=== PATIENT | male | born 1960 | race Hispanic/Latino ===

== ENCOUNTER 2022-01-07 16:32 | Inpatient (IN) | payer OTHER ==
[~2022-01-07] VITALS: Ht 172.7 cm; Wt 92.5 kg
[2022-01-07 16:57] LABS: APPEARANCE,URINE CLEAR (CLEAR); BILIRUBIN,URINE NEGATIVE (NEGATIVE); COLOR,URINE YELLOW (YELLOW); GLUCOSE, URINE (UA) NEGATIVE (NEGATIVE); KETONES,URINE NEGATIVE (NEGATIVE); LEUKOCYTE ESTERASE ,URINE NEGATIVE (NEGATIVE); NITRATE,URINE NEGATIVE (NEGATIVE); OCCULT BLOOD,URINE TRACE-LYSED (NEGATIVE); PH,URINE 6.5 (5.0-8.0); PROTEIN,URINE NEGATIVE (NEGATIVE); UROBILINOGEN,URINE 0.2 mg/dL (0.2-1.0)
[2022-01-07] MEDS ORDERED: ASPIRIN 325MG TAB PO ONE (17:00)
[2022-01-07] MEDS ORDERED: NITROGLYCERIN 1GM OINT 1 INCH/1GM TD ONE (17:00)
[2022-01-07 17:04] LABS: BASOPHILS % (AUTO) 0.3 % (0.0-5.0); HEMATOCRIT 38.9 % (42-54); LYMPHOCYTES % (AUTO) 9.1 % (21.0-51.0); MEAN CORPUSCULAR HGB CONC 34.7 g/dL (32.0-36.0); MEAN CORPUSCULAR VOLUME 83.5 fL (79-99); NEUTROPHILS % (AUTO) 87.2 % (40.0-77.0); PLATELET COUNT (AUTO) 221 K/uL (130-400); RED BLOOD CELL COUNT(AUTO) 4.66 MIL/uL (4.50-6.20); RED CELL DISTRIBUTION WIDTH 13.3 % (11.0-15.5); WHITE BLOOD COUNT (AUTO) 11.9 K/uL (4.8-10.8)
[2022-01-07 17:30] LABS: BACTERIA,URINE Rare /HPF (None Seen); RBC,URINE 0-1 /HPF (0-1); SQUAMOUS EPITHELIAL CELL,UR Few /HPF (0-2); WBC,URINE 0-1 /HPF (0-1)
[2022-01-07 17:31] LABS: MUCUS,URINE Few LPF (None Seen)
[2022-01-07 17:34] LABS: ALBUMIN 3.8 g/dL (3.5-5.0); POTASSIUM 3.5 mmol/L (3.5-5.1); TOTAL PROTEIN, SERUM 7.7 g/dL (6.0-8.3)
[2022-01-07 17:47] LABS: B-TYPE NATRIURETIC PEPTIDE 159 pg/mL (0-100)
[2022-01-07] MEDS ORDERED: ONDANSETRON 4MG INJ IV PRN (18:30)
[2022-01-07] MEDS ORDERED: NITROGLYCERIN 0.4 MG SL TAB SL PRN (18:30)
[2022-01-07 18:56] LABS: HEMOGLOBIN A1C 5.2 % (4.0-6.0)
[2022-01-07 18:58] LABS: CHOLESTEROL 213 mg/dL (<200); HDL CHOLESTEROL 36 mg/dL (29-71); LDL DIRECT 128 mg/dL (0-99); TRIGLYCERIDES 208 mg/dL (30-200)
[2022-01-07] MEDS ORDERED: NITROGLYCERIN 1GM OINT 1 INCH/1GM TD PRN (19:30)
[2022-01-07] MEDS ORDERED: TICAGRELOR 90 MG TABLET PO SCH (19:30)
[2022-01-07] MEDS: ENOXAPARIN SODIUM 100 MG/1 ML SQ SCH (19:41)
[2022-01-07 19:52] LABS: INR 0.96 (0.85-1.15); PROTHROMBIN TIME 10.5 SEC (9.6-11.6)
[2022-01-07 19:53] LABS: PARTIAL THROMBOPLASTIN TIME 25.3 SEC (26.3-35.5)
[2022-01-07] MEDS: METOPROLOL TARTRATE 25 MG TAB PO SCH (21:47)
[2022-01-08] VITALS (15 sets, daily range): BP systolic 111–148; BP diastolic 60–80
[2022-01-08] MEDS ORDERED: 0.9% NACL 500ML IV.SOLN 500 ML IV SCH
[2022-01-08] MEDS ORDERED: TICAGRELOR 90 MG TABLET PO SCH (09:00)
[2022-01-08] MEDS: ENOXAPARIN SODIUM 100 MG/1 ML SQ SCH (09:00)
[2022-01-08] MEDS ORDERED: ATORVASTATIN 20 MG TABLET PO SCH (09:00)
[2022-01-08] MEDS ORDERED: PANTOPRAZOLE 40 MG TAB DR PO SCH (09:00)
[2022-01-08] MEDS: METOPROLOL TARTRATE 25 MG TAB PO SCH ×2 (09:23→21:16)
[2022-01-08] MEDS: ASPIRIN 81 MG EC TAB PO SCH (09:23)
[2022-01-08 09:31] LABS: MEAN CORPUSCULAR HGB CONC 33.9 g/dL (32.0-36.0); MEAN CORPUSCULAR VOLUME 85.7 fL (79-99); RED BLOOD CELL COUNT(AUTO) 4.2 MIL/uL (4.50-6.20); RED CELL DISTRIBUTION WIDTH 13.8 % (11.0-15.5); WHITE BLOOD COUNT (AUTO) 14.2 K/uL (4.8-10.8)
[2022-01-08] MEDS ORDERED: LIDOCAINE HCL-MPF 2% 10ML AMP IJ ONE (09:40)
[2022-01-08] MEDS ORDERED: FENTANYL CITRATE PF 50 MCG/1 ML 2ML VIAL ONE (09:40)
[2022-01-08] MEDS ORDERED: IOHEXOL-350 50ML VIAL IV ONE (09:40)
[2022-01-08] MEDS ORDERED: MIDAZOLAM HCL 1 MG/ML 2ML VIAL ONE (09:40)
[2022-01-08] MEDS ORDERED: NITROGLYCERIN 50MG VIAL ONE (09:40)
[2022-01-08] MEDS ORDERED: IOHEXOL 350 MG/ML 100ML INFUS..BTL IV ONE (09:40)
[2022-01-08 09:48] LABS: ALBUMIN 3.5 g/dL (3.5-5.0); POTASSIUM 3.5 mmol/L (3.5-5.1); TOTAL PROTEIN, SERUM 6.9 g/dL (6.0-8.3)
[2022-01-08] MEDS ORDERED: HEPARIN 25,000 UNITS/250ML D5W 250 ML IV SCH (11:00)
[2022-01-08] MEDS ORDERED: HEPARIN 5,000 UNIT VIAL ONE (13:54)
[2022-01-08] MEDS: ACETAMINOPHEN 325 MG TAB PO PRN (16:45)
[2022-01-08 20:29] LABS: PROTHROMBIN TIME 10.9 SEC (9.6-11.6)
[2022-01-08 20:31] LABS: PARTIAL THROMBOPLASTIN TIME 79.1 SEC (26.3-35.5)
[2022-01-09] VITALS (28 sets, daily range): BP systolic 97–159; BP diastolic 40–67
[2022-01-09] MEDS: ACETAMINOPHEN 325 MG TAB PO PRN ×3 (03:09→23:30)
[2022-01-09 04:05] LABS: BASOPHILS % (AUTO) 0.3 % (0.0-5.0); EOSINOPHILS % (AUTO) 0.1 % (0.0-8.0); HEMATOCRIT 34.6 % (42-54); MEAN CORPUSCULAR HGB CONC 34.4 g/dL (32.0-36.0); MEAN CORPUSCULAR VOLUME 84.4 fL (79-99); MONOCYTES % (AUTO) 11.8 % (3.0-13.0); NEUTROPHILS % (AUTO) 73.2 % (40.0-77.0); PLATELET COUNT (AUTO) 180 K/uL (130-400); RED CELL DISTRIBUTION WIDTH 13.7 % (11.0-15.5); WHITE BLOOD COUNT (AUTO) 13.8 K/uL (4.8-10.8)
[2022-01-09 04:09] LABS: CREATININE 1.2 mg/dL (0.5-1.5); POTASSIUM 3.4 mmol/L (3.5-5.1)
[2022-01-09 04:12] LABS: INR 1.01 (0.85-1.15)
[2022-01-09] MEDS ORDERED: KCL 20 MEQ ERTAB PO ONE (04:30)
[2022-01-09 04:34] LABS: HEMOGLOBIN A1C 5.2 % (4.0-6.0)
[2022-01-09 04:39] LABS: B-TYPE NATRIURETIC PEPTIDE 357 pg/mL (0-100)
[2022-01-09] MEDS: METOPROLOL TARTRATE 25 MG TAB PO SCH (08:18)
[2022-01-09] MEDS ORDERED: EPINEPHRINE PF 1MG (1:1,000) 10 MG in 0.9% NACL 250ML 240 ML IV PRN ×2 (09:00→17:00)
[2022-01-09] MEDS ORDERED: AMINOCAPROIC ACID 5,000MG VIAL 15,000 MG in 0.9% NACL 500ML IV.SOLN 420 ML IV PRN (09:00)
[2022-01-09] MEDS ORDERED: NOREPINEPHRINE BITARTRATE 8 MG in DEXTROSE 5%-WATER 250 ML IV PRN (09:00)
[2022-01-09] MEDS: ASPIRIN 81 MG EC TAB PO SCH (09:00)
[2022-01-09] MEDS ORDERED: NITROGLYCERIN 50MG/D5W 250ML 1 BOT ONE (13:34)
[2022-01-09] MEDS ORDERED: CEFAZOLIN SODIUM 1 GM VIAL IVP SCH (14:00)
[2022-01-09] MEDS ORDERED: 0.9%NACL 1000ML 1,000 ML IV ONE (14:19)
[2022-01-09] MEDS ORDERED: NOREPINEPHRINE BITARTRATE 1 MG/1 ML ML IV ONE (15:21)
[2022-01-09] MEDS ORDERED: LIDOCAINE PF 100MG/5ML (2%) SYRINGE 5ML ONE (15:21)
[2022-01-09] MEDS ORDERED: PROTAMINE SULFATE 10 MG/ML 25ML VIAL IV ONE (15:21)
[2022-01-09] MEDS ORDERED: SODIUM BICARB 50MEQ 50ML VIAL 150 ML ONE (15:21)
[2022-01-09] MEDS ORDERED: HEPARIN 10,000 UNIT/10ML (1,000 UNIT/ML) VIAL ONE ×2 (15:21→16:03)
[2022-01-09] MEDS ORDERED: EPINEPHRINE PF 1MG (1:1,000) 1 MG/ML AMP ONE (15:21)
[2022-01-09] MEDS ORDERED: AMINOCAPROIC ACID 5,000MG VIAL ONE (15:21)
[2022-01-09] MEDS ORDERED: ESMOLOL HCL 10 MG/ML 10 ML VIAL ONE (15:21)
[2022-01-09] MEDS ORDERED: PROPOFOL 10 MG/ML 20ML VIAL IV ONE (15:22)
[2022-01-09] MEDS ORDERED: KETAMINE 50MG/ML SYRINGE 50 MG/ML DISP.SYRIN IV ONE (15:22)
[2022-01-09] MEDS ORDERED: ROCURONIUM 10MG/1ML SYR 10 MG/ML ML ONE ×2 (15:22→18:06)
[2022-01-09] MEDS ORDERED: MIDAZOLAM HCL 1 MG/ML 2ML VIAL ONE (15:22)
[2022-01-09] MEDS ORDERED: FENTANYL CITRATE PF 50 MCG/1 ML 20ML VIAL IJ ONE (15:22)
[2022-01-09] MEDS ORDERED: CEFAZOLIN SODIUM 1 GM VIAL ONE (15:51)
[2022-01-09] MEDS ORDERED: PAPAVERINE HCL 30 MG/ML 2ML VIAL ONE (15:52)
[2022-01-09 16:14] LABS: ABG BASE EXCESS -2.3 mmol/L (-2.0-3.0); ABG HCO3 22.1 mmol/L (21.0-28.0); ABG OXYGEN SATURATION 99.4 % (95.0-99.0); ABG PCO2 37 mmHg (35-48)
[2022-01-09] MEDS ORDERED: ACETAMINOPHEN 325 MG TAB PO PRN (17:00)
[2022-01-09] MEDS ORDERED: ACETAMINOPHEN 650 MG SUPPOSITORY RC PRN (17:00)
[2022-01-09] MEDS ORDERED: GLUCAGON 1MG KIT 1 MG ML IM PRN (17:00)
[2022-01-09] MEDS ORDERED: HYDROCODONE/ACETAMINOPHEN 7.5/325 MG TAB PO PRN (17:00)
[2022-01-09] MEDS ORDERED: NOREPINEPHRIN 4MG/NS 250ML 250 ML IV PRN (17:00)
[2022-01-09] MEDS ORDERED: NITROGLYCERIN 50MG/D5W 250ML 250 BOT IV SCH (17:00)
[2022-01-09] MEDS ORDERED: AMINOCAPROIC ACID 5,000MG VIAL 15,000 MG in 0.9% NACL 250ML 250 ML IV SCH (17:00)
[2022-01-09] MEDS ORDERED: 0.9% NACL 500ML IV.SOLN 500 ML IV SCH (17:00)
[2022-01-09] MEDS ORDERED: 0.9%NACL 10ML VIAL IVP PRN (17:00)
[2022-01-09] MEDS ORDERED: 0.9%NACL 1000ML 1,000 ML IV SCH (17:00)
[2022-01-09] MEDS ORDERED: ALBUMIN (HUMAN) 5% 250 ML IV PRN (17:00)
[2022-01-09] MEDS ORDERED: INSULIN REGULAR, HUMAN 3ML 100 UNIT in 0.9%NACL 100ML 99 ML IV SCH ×2 (17:00)
[2022-01-09] MEDS ORDERED: POTASSIUM PHOS 15 mMOL+NS250ML 250 ML IV PRN (17:00)
[2022-01-09] MEDS ORDERED: MORPHINE 2 MG SYG IV PRN ×2 (17:00)
[2022-01-09] MEDS ORDERED: PROPOFOL 1000 MG/100 ML 100 ML IV PRN (17:00)
[2022-01-09] MEDS ORDERED: DEXTROSE 50%-WATER 50 ML DISP.SYRIN IV PRN (17:00)
[2022-01-09] MEDS ORDERED: ONDANSETRON 4MG INJ IV PRN (17:00)
[2022-01-09] MEDS ORDERED: SODIUM BICARB 50MEQ 50ML VIAL 100 ML ONE (17:17)
[2022-01-09 17:52] LABS: ABG HCO3 22.5 mmol/L (21.0-28.0); ABG OXYGEN SATURATION 98.1 % (95.0-99.0); ABG PCO2 37 mmHg (35-48)
[2022-01-09 18:37] LABS: ABG BASE EXCESS -2.6 mmol/L (-2.0-3.0); ABG HCO3 22.8 mmol/L (21.0-28.0); ABG OXYGEN SATURATION 95.9 % (95.0-99.0); ABG PCO2 42 mmHg (35-48)
[2022-01-09 18:46] LABS: HEMATOCRIT 27.9 % (42-54); MEAN CORPUSCULAR HEMOGLOBIN 28.7 pg (27.0-33.0); MEAN CORPUSCULAR HGB CONC 33.7 g/dL (32.0-36.0); MEAN CORPUSCULAR VOLUME 85.3 fL (79-99); RED BLOOD CELL COUNT(AUTO) 3.27 MIL/uL (4.50-6.20); RED CELL DISTRIBUTION WIDTH 13.6 % (11.0-15.5); WHITE BLOOD COUNT (AUTO) 27.3 K/uL (4.8-10.8)
[2022-01-09 18:57] LABS: INR 1.19 (0.85-1.15); PROTHROMBIN TIME 12.8 SEC (9.6-11.6)
[2022-01-09 18:58] LABS: PARTIAL THROMBOPLASTIN TIME 23.1 SEC (26.3-35.5)
[2022-01-09] MEDS: SODIUM BICARB 50MEQ 50ML VIAL IV PRN (18:59)
[2022-01-09 19:00] LABS: CREATININE 1.2 mg/dL (0.5-1.5); MAGNESIUM 1.5 mg/dL (1.80-2.40); PHOSPHORUS 3.4 mg/dL (2.5-4.9); POTASSIUM 3.3 mmol/L (3.5-5.1)
[2022-01-09] MEDS ORDERED: ASPIRIN 81MG CHEW TAB NG ONE (19:00)
[2022-01-09] MEDS: POTASSIUM CHLORIDE 20MEQ/100ML 100 ML IV PRN ×3 (19:07→21:37)
[2022-01-09 19:29] LABS: ABG BASE EXCESS 1.4 mmol/L (-2.0-3.0); ABG HCO3 25.5 mmol/L (21.0-28.0); ABG OXYGEN SATURATION 98.4 % (95.0-99.0); ABG PCO2 38 mmHg (35-48)
[2022-01-09] MEDS: FAMOTIDINE 20MG VIAL IV SCH (19:41)
[2022-01-09] MEDS: ATORVASTATIN 40 MG TABLET PO SCH (19:41)
[2022-01-09] MEDS: CALCIUM GLUC 1GM 1 GM in 0.9%NACL 50ML 50 ML IV PRN ×2 (19:47→21:36)
[2022-01-09 20:29] LABS: ABG BASE EXCESS 0.9 mmol/L (-2.0-3.0); ABG HCO3 25.2 mmol/L (21.0-28.0); ABG OXYGEN SATURATION 98.3 % (95.0-99.0); ABG PCO2 39 mmHg (35-48)
[2022-01-09] MEDS: MAGNESIUM 2GM PREMIX 50ML 50 ML IV PRN ×2 (20:42→22:40)
[2022-01-09 21:28] LABS: ABG BASE EXCESS 0.8 mmol/L (-2.0-3.0); ABG HCO3 25.8 mmol/L (21.0-28.0); ABG OXYGEN SATURATION 97.8 % (95.0-99.0); ABG PCO2 43 mmHg (35-48)
[2022-01-09] MEDS: CEFAZOLIN SODIUM 1 GM VIAL IV SCH (21:53)
[2022-01-09 22:32] LABS: ABG BASE EXCESS -0.5 mmol/L (-2.0-3.0); ABG HCO3 23.9 mmol/L (21.0-28.0); ABG PCO2 38 mmHg (35-48)
[2022-01-09 23:26] LABS: ABG HCO3 24.6 mmol/L (21.0-28.0); ABG PCO2 40 mmHg (35-48)
[2022-01-09] MEDS ORDERED: ALBUMIN (HUMAN) 5% 250 ML IV ONE (23:52)
[2022-01-10] VITALS (58 sets, daily range): BP systolic 81–260; BP diastolic 42–260
[2022-01-10] MEDS: CALCIUM GLUC 1GM 1 GM in 0.9%NACL 50ML 50 ML IV PRN ×2 (00:28→05:25)
[2022-01-10 00:29] LABS: ABG BASE EXCESS 1.1 mmol/L (-2.0-3.0); ABG HCO3 25.3 mmol/L (21.0-28.0); ABG OXYGEN SATURATION 98.1 % (95.0-99.0); ABG PCO2 38 mmHg (35-48)
[2022-01-10 01:39] LABS: ABG BASE EXCESS -1.1 mmol/L (-2.0-3.0); ABG HCO3 23.3 mmol/L (21.0-28.0); ABG OXYGEN SATURATION 97.4 % (95.0-99.0); ABG PCO2 37 mmHg (35-48)
[2022-01-10] MEDS: SODIUM BICARB 50MEQ 50ML VIAL IV PRN (01:40)
[2022-01-10] MEDS: HYDROCODONE/ACETAMINOPHEN 5/325 MG TAB PO PRN ×3 (01:57→15:43)
[2022-01-10 03:59] LABS: ABG BASE EXCESS 0.2 mmol/L (-2.0-3.0); ABG HCO3 24.7 mmol/L (21.0-28.0); ABG OXYGEN SATURATION 95.1 % (95.0-99.0); ABG PCO2 39 mmHg (35-48)
[2022-01-10 04:38] LABS: HEMATOCRIT 25.1 % (42-54); MEAN CORPUSCULAR HEMOGLOBIN 29.2 pg (27.0-33.0); MEAN CORPUSCULAR HGB CONC 33.9 g/dL (32.0-36.0); MEAN CORPUSCULAR VOLUME 86.3 fL (79-99); RED BLOOD CELL COUNT(AUTO) 2.91 MIL/uL (4.50-6.20); WHITE BLOOD COUNT (AUTO) 14.3 K/uL (4.8-10.8)
[2022-01-10 04:46] LABS: INR 1.01 (0.85-1.15)
[2022-01-10 04:48] LABS: PARTIAL THROMBOPLASTIN TIME 25.4 SEC (26.3-35.5)
[2022-01-10 04:56] LABS: CREATININE 1.3 mg/dL (0.5-1.5); MAGNESIUM 2.6 mg/dL (1.80-2.40); PHOSPHORUS 3.6 mg/dL (2.5-4.9); POTASSIUM 4.1 mmol/L (3.5-5.1)
[2022-01-10] MEDS: CEFAZOLIN SODIUM 1 GM VIAL IV SCH ×2 (05:58→14:23)
[2022-01-10] MEDS: FAMOTIDINE 20MG VIAL IV SCH ×2 (08:17→20:31)
[2022-01-10] MEDS: ASPIRIN 81 MG EC TAB PO SCH (08:17)
[2022-01-10] MEDS: FUROSEMIDE 20MG VIAL IV SCH ×2 (08:17→20:31)
[2022-01-10] MEDS: ACETAMINOPHEN 325 MG TAB PO PRN (16:01)
[2022-01-10] MEDS ORDERED: TRAMADOL HCL 50 MG TABLET PO PRN (17:30)
[2022-01-10] MEDS: ATORVASTATIN 40 MG TABLET PO SCH (20:31)
[2022-01-10] MEDS: TRAMADOL HCL 50 MG TABLET PO PRN (21:45)
[2022-01-11] VITALS (24 sets, daily range): BP systolic 106–158; BP diastolic 51–77
[2022-01-11] MEDS: ACETAMINOPHEN 325 MG TAB PO PRN ×2 (02:10→14:14)
[2022-01-11] MEDS: TRAMADOL HCL 50 MG TABLET PO PRN ×2 (05:24→13:08)
[2022-01-11 05:28] LABS: HEMATOCRIT 23.3 % (42-54); MEAN CORPUSCULAR HEMOGLOBIN 29.3 pg (27.0-33.0); MEAN CORPUSCULAR HGB CONC 33.9 g/dL (32.0-36.0); MEAN CORPUSCULAR VOLUME 86.3 fL (79-99); RED BLOOD CELL COUNT(AUTO) 2.7 MIL/uL (4.50-6.20); RED CELL DISTRIBUTION WIDTH 13.7 % (11.0-15.5); WHITE BLOOD COUNT (AUTO) 12.8 K/uL (4.8-10.8)
[2022-01-11 05:43] LABS: CREATININE 1.3 mg/dL (0.5-1.5); POTASSIUM 3.6 mmol/L (3.5-5.1)
[2022-01-11] MEDS: POTASSIUM CHLORIDE 20MEQ/100ML 100 ML IV PRN (06:29)
[2022-01-11] MEDS: METOPROLOL TARTRATE 25 MG TAB PO SCH ×2 (07:59→20:52)
[2022-01-11] MEDS: FUROSEMIDE 20 MG TABLET PO SCH ×2 (08:00→16:11)
[2022-01-11] MEDS: ASPIRIN 81 MG EC TAB PO SCH (08:00)
[2022-01-11] MEDS ORDERED: TRAMADOL HCL 50 MG TABLET PO PRN ×2 (17:00)
[2022-01-11] MEDS ORDERED: FUROSEMIDE 20MG VIAL IV SCH (18:30)
[2022-01-11] MEDS: INSULIN HUMULIN R 100 UNIT/ML 3ML SQ SCH (20:27)
[2022-01-11] MEDS: ATORVASTATIN 40 MG TABLET PO SCH (20:53)
[2022-01-12] VITALS (19 sets, daily range): BP systolic 115–156; BP diastolic 62–83
[2022-01-12 04:22] LABS: HEMATOCRIT 24.4 % (42-54); MEAN CORPUSCULAR HEMOGLOBIN 28.6 pg (27.0-33.0); MEAN CORPUSCULAR HGB CONC 33.6 g/dL (32.0-36.0); RED BLOOD CELL COUNT(AUTO) 2.87 MIL/uL (4.50-6.20); RED CELL DISTRIBUTION WIDTH 13.5 % (11.0-15.5)
[2022-01-12 04:23] LABS: CREATININE 1.2 mg/dL (0.5-1.5); POTASSIUM 3.2 mmol/L (3.5-5.1)
[2022-01-12] MEDS: POTASSIUM CHLORIDE 20MEQ/100ML 100 ML IV PRN (06:29)
[2022-01-12] MEDS: INSULIN HUMULIN R 100 UNIT/ML 3ML SQ SCH ×4 (06:29→20:31)
[2022-01-12] MEDS: METOPROLOL TARTRATE 25 MG TAB PO SCH ×2 (08:28→20:31)
[2022-01-12] MEDS: FUROSEMIDE 20 MG TABLET PO SCH ×2 (08:28→16:44)
[2022-01-12] MEDS: ENOXAPARIN SODIUM 30 MG/0.3 ML SQ SCH (08:28)
[2022-01-12] MEDS: ASPIRIN 81 MG EC TAB PO SCH (08:28)
[2022-01-12] MEDS: KCL 20 MEQ ERTAB PO SCH (11:59)
[2022-01-12] MEDS ORDERED: COMPOUND PO MISCELLANEOUS 1 EACH MISC MISC PRN (16:30)
[2022-01-12] MEDS ORDERED: POTASSIUM CHLORIDE 10% ELIXIR 20 MEQ/15 ML UDCUP PO PRN (16:30)
[2022-01-12] MEDS: WATER FOR INJECTION,STERILE 40 ML, VANCOMYCIN 1G 2 GM PO SCH ×4 (17:00→20:35)
[2022-01-12] MEDS: ATORVASTATIN 40 MG TABLET PO SCH (20:31)
[2022-01-13 00:30] VITALS: BP 130/70
[2022-01-13 03:33] VITALS: BP 126/58
[2022-01-13 04:05] LABS: BASOPHILS % (AUTO) 0.2 % (0.0-5.0); EOSINOPHILS % (AUTO) 0.1 % (0.0-8.0); LYMPHOCYTES % (AUTO) 9.8 % (21.0-51.0); MEAN CORPUSCULAR HEMOGLOBIN 28.8 pg (27.0-33.0); MEAN CORPUSCULAR HGB CONC 33.8 g/dL (32.0-36.0); MONOCYTES % (AUTO) 8.2 % (3.0-13.0); NEUTROPHILS % (AUTO) 80.9 % (40.0-77.0); PLATELET COUNT (AUTO) 277 K/uL (130-400); RED BLOOD CELL COUNT(AUTO) 3.06 MIL/uL (4.50-6.20); RED CELL DISTRIBUTION WIDTH 13.5 % (11.0-15.5); WHITE BLOOD COUNT (AUTO) 13.9 K/uL (4.8-10.8)
[2022-01-13 04:51] LABS: % IRON SATURATION 14.7 % (30-44)
[2022-01-13 04:58] LABS: ALBUMIN 2.5 g/dL (3.5-5.0); CREATININE 1.1 mg/dL (0.5-1.5); MAGNESIUM 2.5 mg/dL (1.80-2.40); PHOSPHORUS 2.6 mg/dL (2.5-4.9); POTASSIUM 3.2 mmol/L (3.5-5.1); TOTAL PROTEIN, SERUM 7.2 g/dL (6.0-8.3)
[2022-01-13] MEDS: KCL 20 MEQ ERTAB PO PRN ×2 (05:44→09:35)
[2022-01-13] MEDS: INSULIN HUMULIN R 100 UNIT/ML 3ML SQ SCH ×4 (06:16→20:38)
[2022-01-13] MEDS: FUROSEMIDE 20 MG TABLET PO SCH ×2 (09:00→17:56)
[2022-01-13] MEDS: METOPROLOL TARTRATE 25 MG TAB PO SCH ×2 (09:32→20:38)
[2022-01-13] MEDS: ASPIRIN 81 MG EC TAB PO SCH (09:32)
[2022-01-13] MEDS: ENOXAPARIN SODIUM 30 MG/0.3 ML SQ SCH (09:35)
[2022-01-13] MEDS: WATER FOR INJECTION,STERILE 40 ML, VANCOMYCIN 1G 2 GM PO SCH ×8 (09:36→20:38)
[2022-01-13 09:41] VITALS: BP 135/67
[2022-01-13 11:47] VITALS: BP 127/63
[2022-01-13] MEDS: KCL 20 MEQ ERTAB PO SCH (12:22)
[2022-01-13] MEDS ORDERED: LACTOBACILLUS RHAMNOSUS GG 1 EACH CAP.SPRINK PO SCH (15:00)
[2022-01-13] MEDS ORDERED: LOPERAMIDE HCL 2 MG CAP PO ONE (15:21)
[2022-01-13] MEDS: IRON SUCROSE COMPLEX 100 MG/5 ML VIAL IVP SCH (15:26)
[2022-01-13] MEDS ORDERED: LOPERAMIDE HCL 2 MG CAP PO PRN (15:30)
[2022-01-13] MEDS ORDERED: IRON SUCROSE COMPLEX 100 MG in 0.9%NACL 50ML 50 ML IV SCH (16:00)
[2022-01-13 16:05] VITALS: BP 138/75
[2022-01-13] MEDS: TRAMADOL HCL 50 MG TABLET PO PRN (20:37)
[2022-01-13] MEDS: ATORVASTATIN 40 MG TABLET PO SCH (20:38)
[2022-01-13 20:54] VITALS: BP 144/63
[2022-01-14] VITALS (7 sets, daily range): BP systolic 108–158; BP diastolic 45–72
[2022-01-14 03:49] LABS: BASOPHILS % (AUTO) 0.4 % (0.0-5.0); EOSINOPHILS % (AUTO) 0.3 % (0.0-8.0); HEMATOCRIT 25.1 % (42-54); LYMPHOCYTES % (AUTO) 12.4 % (21.0-51.0); MEAN CORPUSCULAR HEMOGLOBIN 28.1 pg (27.0-33.0); MEAN CORPUSCULAR HGB CONC 32.7 g/dL (32.0-36.0); MONOCYTES % (AUTO) 12.2 % (3.0-13.0); NEUTROPHILS % (AUTO) 73.1 % (40.0-77.0); PLATELET COUNT (AUTO) 297 K/uL (130-400); RED BLOOD CELL COUNT(AUTO) 2.92 MIL/uL (4.50-6.20); RED CELL DISTRIBUTION WIDTH 13.8 % (11.0-15.5); WHITE BLOOD COUNT (AUTO) 12.8 K/uL (4.8-10.8)
[2022-01-14 04:07] LABS: ALBUMIN 2.5 g/dL (3.5-5.0); CREATININE 1.2 mg/dL (0.5-1.5); POTASSIUM 3.6 mmol/L (3.5-5.1); TOTAL PROTEIN, SERUM 7.1 g/dL (6.0-8.3)
[2022-01-14] MEDS: KCL 20 MEQ ERTAB PO PRN ×2 (05:48→15:41)
[2022-01-14] MEDS: INSULIN HUMULIN R 100 UNIT/ML 3ML SQ SCH ×4 (06:00→20:15)
[2022-01-14] MEDS: ENOXAPARIN SODIUM 30 MG/0.3 ML SQ SCH (08:30)
[2022-01-14] MEDS: ASPIRIN 81 MG EC TAB PO SCH (08:31)
[2022-01-14] MEDS: FUROSEMIDE 20 MG TABLET PO SCH ×2 (08:31→17:03)
[2022-01-14] MEDS: METOPROLOL TARTRATE 25 MG TAB PO SCH ×2 (08:31→20:15)
[2022-01-14] MEDS: IRON SUCROSE COMPLEX 100 MG/5 ML VIAL IVP SCH (08:32)
[2022-01-14] MEDS: WATER FOR INJECTION,STERILE 40 ML, VANCOMYCIN 1G 2 GM PO SCH ×8 (08:33→20:15)
[2022-01-14] MEDS: ACETAMINOPHEN 325 MG TAB PO PRN (08:41)
[2022-01-14] MEDS ORDERED: IRON SUCROSE COMPLEX 100 MG in 0.9%NACL 50ML 50 ML IV SCH (09:00)
[2022-01-14] MEDS: ATORVASTATIN 40 MG TABLET PO SCH (20:15)
[2022-01-15 03:31] VITALS: BP 107/61
[2022-01-15 05:03] LABS: HEMATOCRIT 26.7 % (42-54); MEAN CORPUSCULAR HEMOGLOBIN 28.3 pg (27.0-33.0); MEAN CORPUSCULAR VOLUME 85.9 fL (79-99); NUCLEATED RED BLOOD CELLS 0.2 % (0.0-0.19); RED BLOOD CELL COUNT(AUTO) 3.11 MIL/uL (4.50-6.20); RED CELL DISTRIBUTION WIDTH 13.9 % (11.0-15.5); WHITE BLOOD COUNT (AUTO) 12.3 K/uL (4.8-10.8)
[2022-01-15 05:11] LABS: POTASSIUM 4.3 mmol/L (3.5-5.1)
[2022-01-15] MEDS: INSULIN HUMULIN R 100 UNIT/ML 3ML SQ SCH ×2 (06:04→11:30)
[2022-01-15 08:00] VITALS: BP 126/56
[2022-01-15] MEDS: ENOXAPARIN SODIUM 30 MG/0.3 ML SQ SCH (08:07)
[2022-01-15] MEDS: FUROSEMIDE 20 MG TABLET PO SCH (08:08)
[2022-01-15] MEDS: METOPROLOL TARTRATE 25 MG TAB PO SCH (08:08)
[2022-01-15] MEDS: WATER FOR INJECTION,STERILE 40 ML, VANCOMYCIN 1G 2 GM PO SCH ×4 (08:08→13:15)
[2022-01-15] MEDS: ASPIRIN 81 MG EC TAB PO SCH (08:08)
[2022-01-15] MEDS ORDERED: AEC81 PO (09:49)
[2022-01-15] MEDS ORDERED: FURO20TA6 PO (09:49)
[2022-01-15] MEDS ORDERED: METO25 PO (09:49)
[2022-01-15] MEDS ORDERED: ATOR40TA69 PO (09:49)
[2022-01-15] MEDS ORDERED: CLOPIDOGREL 75MG TAB PO SCH (11:30)
[2022-01-15] MEDS ORDERED: CLOP75TA14 PO (11:51)
[2022-01-15 12:00] VITALS: BP 125/65
== END 2022-01-15 14:26 | disposition home or self-care (01) | DRG 233 ==
LOC: EDH 16:32 → EDHIP 16:33 → OBSVTOIN 16:33 → 3AH 01-08 01:33 → 2AH 01-08 22:55 → 2CV 01-09 16:08 → 2CH 01-10 06:40 → 2DH 01-12 21:48
PROVIDERS: ADMIT Internal Medicine; ATTEND Internal Medicine
PROC: 4A023N7 Measurement of Cardiac Sampling and Pressure, Left Heart, Percutaneous Approach (ICD-10-PCS; 2022-01-08)
PROC: B41F1ZZ Fluoroscopy of Right Lower Extremity Arteries using Low Osmolar Contrast (ICD-10-PCS; 2022-01-08)
PROC: B2111ZZ Fluoroscopy of Multiple Coronary Arteries using Low Osmolar Contrast (ICD-10-PCS; 2022-01-08)
PROC: 06BQ4ZZ Excision of Left Saphenous Vein, Percutaneous Endoscopic Approach (ICD-10-PCS; 2022-01-09)
PROC: 02100Z9 Bypass Coronary Artery, One Artery from Left Internal Mammary, Open Approach (ICD-10-PCS; principal; 2022-01-09 14:00)
PROC: 0211093 Bypass Coronary Artery, Two Arteries from Coronary Artery with Autologous Venous Tissue, Open Approach (ICD-10-PCS; 2022-01-09 14:00)
DX: I25.10 Atherosclerotic heart disease of native coronary artery without angina pectoris (principal); I21.4 Non-ST elevation (NSTEMI) myocardial infarction; E11.9 Type 2 diabetes mellitus without complications; Z20.822 Contact with and (suspected) exposure to COVID-19; D50.9 Iron deficiency anemia, unspecified; E66.9 Obesity, unspecified; E87.70 Fluid overload, unspecified; F41.9 Anxiety disorder, unspecified; I10 Essential (primary) hypertension; I25.2 Old myocardial infarction; Z79.899 Other long term (current) drug therapy; Z68.31 Body mass index [BMI] 31.0-31.9, adult
CPT/HCPCS: 36415; 71045; 80048; 80053; 80061; 81001; 82435; 82550; 82607; 82728; 82746; 82803; 82947; 82948; 83036; 83540; 83550; 83605; 83735; 83880; 84100; 84132; 84295; 84443; 84484; 85018; 85025; 85027; 85045; 85347; 85610; 85730; 86850; 86900; 86901; 86923; 87493; 87635; 93005; 93306; 93308; 93356; 93454; 93880; 94002; 94003; 94010; 94150; 94760; 97039; 99156; 99157; A4357; A7048; C1760; C1894; G0378; J0171; J0610; J0690; J1644; J1650; J1756; J1815; J1940; J2001; J2250; J2440; J2704; J2720; J3010; J3370; J3475; J3480; J3490; J7030; J7040; P9045; Q9967

== ENCOUNTER → 2022-08-19 | Outpatient (CLI) | payer MEDICAID, SELFPAY ==
[~2022-08-19] MED LIST: AEC81 PO; ATOR40TA69 PO; CLOP-31 PO; FURO20TA6 PO; METO25 PO
== END | disposition home or self-care (01) ==
LOC: SHCH 09:35
PROVIDERS: ATTEND Internal Medicine Cardiovascular Disease
DX: I73.9 Peripheral vascular disease, unspecified (principal)
CPT/HCPCS: 93925